=== PATIENT | male | born 1985 | race Caucasian/White ===

== ENCOUNTER 2017-07-05 15:30 | Emergency (ER) | payer MEDICAID, OTHER ==
[2017-07-05] MEDS ORDERED: CYCLOBENZAPRINE 10 MG TAB PO ONE (16:26)
[2017-07-05] MEDS ORDERED: IBUPROFEN 800 MG TAB PO ONE (16:27)
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
[2017-07-05] MEDS ORDERED: OXYCODONE/APAP 5/325 TAB PO ONE (17:25)
[2017-07-05 18:01] VITALS: BP 122/75; PULSE 72; RESP 16; TEMP 98.6; O2SAT 97
== END 2017-07-05 19:00 | disposition home or self-care (01) ==
DX: S12.9XXA Fracture of neck, unspecified, initial encounter (principal); S12.491A Other nondisplaced fracture of fifth cervical vertebra, initial encounter for closed fracture; S02.2XXA Fracture of nasal bones, initial encounter for closed fracture; V11.4XXA Pedal cycle driver injured in collision with other pedal cycle in traffic accident, initial encounter; Y99.8 Other external cause status; Y93.55 Activity, bike riding

== ENCOUNTER 2017-09-14 14:54 | Emergency (ER) | payer MEDICAID ==
[2017-09-14 15:22] VITALS: BP 114/65
--- NOTE | 2017-09-14 15:25 | EDPHY ---
H & P Stated Complaint: ABCESS ON STOMACH Time Seen by Provider: 09/14/17 15:24 HPI/ROS: HPI: This is a 32-year-old male who presents with Chief Complaint: Abscess on stomach Location: Abdominal lower wall Quality: Abscess Duration: 4 days Signs and Symptoms: No bleeding, no radiation, no numbness, no weakness, no tingling, no incontinence, no decreased range of motion, + swelling, + pain, no fever Timing: Worsening Severity: Moderate Context: Patient is generally healthy presents with complaints of worsening abdominal lower wall abscess that he believes was from an ingrown hair after he shaved approximately 7-10 days ago. He was seen at urgent care 2-3 days ago and started on Keflex. He has been taking the Keflex approximately 48 hr. Denies history of diabetes/MRSA infection. Eating and drinking normally. Denies nausea/vomiting/fever/diarrhea/urinary symptoms. Modifying Factors: Keflex Comment: ROS: see HPI Constitutional: No fever, no chills, no weight loss Eyes: No blurred vision Respiratory: No shortness of breath, no cough Cardiovascular: No chest pain Gastrointestinal: No nausea, no vomiting no diarrhea Genitourinary: No dysuria Extremities: No myalgias Neurologic: No weakness, no numbness Skin: No rashes Hematologic: No bruising, no bleeding MEDICAL/SURGICAL/SOCIAL HISTORY: Medical history: Back fracture, head injury Surgical history: Denies Social history: Nonsmoker. CONSTITUTIONAL: Extremely well-appearing adult white male, polite and cooperative, awake and alert, no obvious distress HEENT: Atraumatic and normocephalic. NECK: supple, no midline tenderness, flexion 45 degrees, extension 45 degrees, right and left lateral flexion 45 degrees. No meningismus. Cardiovascular: Normal S1/S2, regular rate, regular rhythm, without murmur rub or gallop. PULMONARY/CHEST: Symmetrical and nontender. no crepitus. Clear to auscultation bilaterally. Good air movement. No accessory muscle usage. ABDOMEN: Soft, nondistended, nontender, no ecchymosis. PELVIC: no pain with rocking; bilateral hips flexion 125 degrees, extension 30 degrees, with no pain internal rotation and no pain external rotation. BACK: No midline tenderness, no paraspinous spasm, deep tendon reflexes 2/2, no pain with straight leg raise, No foot drop. Achilles reflexes are equal bilaterally. Able to walk on heels and toes without difficulty. EXTREMITIES: 2/2 pulses, strength 5/5, DIP/PIP/MCP flexion/extension intact with good light touch sensation. no deformities, no clubbing, no cyanosis or edema. NEUROLOGICAL: no focal neuro deficits. GCS 15. Light touch sensation intact. SKIN: Warm and dry, 2 inch annular, fluctuant abscess noted inferior to the umbilicus with mild surrounding erythema. [place] in the center noted. no rash. Good capillary refill. Source: Patient Exam Limitations: No limitations - Personal History Current Tetanus/Diphtheria Vaccine: Yes Current Tetanus Diphtheria and Acellular Pertussis (TDAP): Yes - Medical/Surgical History Hx Asthma: No Hx Chronic Respiratory Disease: No Hx Diabetes: No Hx Cardiac Disease: No Hx Renal Disease: No Hx Cirrhosis: No Hx Alcoholism: No Hx HIV/AIDS: No Hx Splenectomy or Spleen Trauma: No Other PMH: fx back/head injury - Social History Smoking Status: Never smoked Constitutional: Initial Vital Signs Temperature (C) 37.1 C 09/14/17 15:19 Heart Rate 82 09/14/17 15:19 Respiratory Rate 16 09/14/17 15:19 Blood Pressure 114/65 09/14/17 15:19 O2 Sat (%) 96 09/14/17 15:19 Allergies/Adverse Reactions: acetaminophen [From Vicodin] Allergy (Verified 07/05/17 15:39) hydrocodone [From Vicodin] Allergy (Verified 07/05/17 15:39) animal Allergy (Intermediate, Uncoded 07/05/17 15:38) Itching Home Medications: Medication Instructions Recorded oxyCODONE/APAP 5/325 [Percocet 1 - 2 tab PO Q4H PRN #20 tab 07/05/17 5/325 (*)] Sulfamethox/Tmp 800/160 mg 1 tab PO BID #20 tab 09/14/17 [Bactrim Ds] Medical Decision Making Procedures: Procedure: Abscess drainage. The patient's abscess was located on the cutaneous superficial lower abdominal wall. I obtained verbal consent from the patient to drain the abscess who was informed about the possibility of bleeding and pain. The abscess was incised with #11 scalpel and a 8 mL amount of purulent drainage was expressed. I irrigated the wound and placed some 0.5 inch packing. The patient tolerated the procedure well. The procedure was performed by myself. ED Course/Re-evaluation: Vital signs reviewed and stable upon arrival. I and D performed and packing placed. Verbal and written wound care instructions provided. Advised to continue Keflex and Bactrim added for 10 day course total. This patient was seen under the supervision of my secondary supervising physician. I evaluated care for this patient independently. Differential Diagnosis: Differential diagnosis includes but is not limited to cellulitis, abscess, MRSA infections. Departure - Departure Disposition: Home, Routine, Self-Care Clinical Impression: Cutaneous abscess of abdominal wall Condition: Good Instructions: Sulfamethoxazole/Trimethoprim (By mouth), Abscess (ED), Abscess Follow-up (ED), Abscess Incision and Drainage (DC) Additional Instructions: Take Tylenol 650 mg every 4 hours and/or Ibuprofen 600 mg every 8 hours with food as needed for pain. Keep the dressing and packing in place times 48 hr. After 48 hr, remove the packing; wash site with mild soap and water and pat dry. Then reapply packing daily until there is no longer any space to place packing. Take both Keflex and Bactrim for a total of 10 days. Do not shave the area until fully healed. Wound Care Follow-Up in the emergency room if unable to perform wound care at home: Wound evaluation and dressing change in 2 days. There is a charge for this evaluation in the Emergency Department. Return to the ER immediately if you experience redness, red streaks, have fevers /chills, flu like symptoms, limited range of motion, or any other symptoms that concern you. Referrals: GUNJAN MATHEW [Primary Care Provider] - 5-7 days, if not improved Prescriptions: Sulfamethox/Tmp 800/160 mg [Bactrim Ds] 1 tab PO BID #20 tab
== END 2017-09-14 15:55 | disposition home or self-care (01) ==
PROC: 0H97XZZ Drainage of Abdomen Skin, External Approach (ICD-10-PCS; principal; 2017-09-14)
DX: L02.211 Cutaneous abscess of abdominal wall (principal)

== ENCOUNTER 2017-09-16 16:24 | Emergency (ER) | payer MEDICAID ==
[2017-09-16 16:31] VITALS: BP 123/76
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
== END 2017-09-16 16:59 | disposition home or self-care (01) ==
DX: Z48.01 Encounter for change or removal of surgical wound dressing (principal)
CPT/HCPCS: G0463

== ENCOUNTER 2017-11-25 15:17 | Emergency (ER) | payer MEDICAID ==
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
[2017-11-25 16:26] VITALS: BP 124/84
== END 2017-11-25 16:25 | disposition home or self-care (01) ==
DX: S82.892A Other fracture of left lower leg, initial encounter for closed fracture (principal); S60.222A Contusion of left hand, initial encounter; V18.4XXA Pedal cycle driver injured in noncollision transport accident in traffic accident, initial encounter; Y92.89 Other specified places as the place of occurrence of the external cause; Y99.8 Other external cause status; Y93.55 Activity, bike riding

== ENCOUNTER 2018-03-21 13:32 | Emergency (ER) | payer MEDICAID ==
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
[2018-03-21] MEDS ORDERED: TDAP ADULT 0.5 ML INJ (BOOSTRIX) IM ONE (14:26)
[2018-03-21 16:19] VITALS: BP 110/72
== END 2018-03-21 16:19 | disposition home or self-care (01) ==
PROC: 0HQFXZZ Repair Right Hand Skin, External Approach (ICD-10-PCS; principal; 2018-03-21)
DX: S62.640B Nondisplaced fracture of proximal phalanx of right index finger, initial encounter for open fracture (principal); S00.81XA Abrasion of other part of head, initial encounter; V18.0XXA Pedal cycle driver injured in noncollision transport accident in nontraffic accident, initial encounter; Y93.55 Activity, bike riding; Z23 Encounter for immunization
CPT/HCPCS: 96374; J0690